=== PATIENT | male | born 1985 | race Hispanic/Latino ===

== ENCOUNTER → 2018-02-17 06:57 | Outpatient (CLI) | payer OTHER, SELFPAY ==
[2018-02-09 07:00] VITALS: BMI 29.4
--- NOTE | 2018-02-17 07:05 | CT_ITS ---
STUDY: CT CHEST WITHOUT CONTRAST REASON FOR EXAM: Male, 32 years old. Cough. History of exposure to silica. RADIATION DOSAGE (If Supplied By Facility): CTDIvol = ( 12.65 ) mGy, DLP = ( 477.45 ) mGycm TECHNIQUE: Transaxial imaging was performed without the administration of intravenous contrast material. Multiplanar coronal and sagittal images were reformatted. Individualized dose optimization techniques were used for this CT. COMPARISON: None. FINDINGS: The lungs are normal. There is no demonstrated pleural abnormality. Normal heart and pericardium. Normal mediastinum. Normal hilar regions. Normal unenhanced pulmonary arteries. Normal aorta arch and descending thoracic aorta. There are mild degenerative changes of the thoracic spine. There is no demonstrated abnormality of the visualized upper abdomen. CT/Chest without Contrast IMPRESSION: Normal unenhanced CT Chest examination. Electronically Signed: Rambo Bradley MD at 8:52 EST Tel [phone], Service support ,
--- NOTE | 2018-02-17 10:19 | PFTCOMP_ITS ---
COMPLETE PULMONARY FUNCTION TEST INTERPRETATION Brief HPI: Patient is a 32 year old male, currently under the care of myself, who presents to [facility] for complete pulmonary function tests secondary to diagnosis of silica exposure. Respiratory therapist reports good effort and reproducible results. Interpretation: Forced expiration spirometry shows no large airways obstructive ventilatory defect with an FEV1 of 103% predicted. There is no significant bronchodilator response by strict ATS criteria. Spirograms are of good quality and plateau normally. The respiratory flow volume loop shows a normal pattern. Lung volumes by body plethysmography show a normal total lung capacity at 6.83 L, 116% predicted. All other lung volumes are within normal limits. Diffusion capacity by carbon monoxide is normal at 114% predicted. The airway resistance is normal. No previous pulmonary function tests were available for review. Impression: These pulmonary function tests are within normal limits.
--- OUTSIDE RECORDS SUMMARY | 2018-04-05 00:25 | XMS RPT_ITS ---
:1985 Author Organization [facility] Care Team Providers Name Role Phone MICAH MO, MS. SUGEY Burdick Attending Unavailable PHYSICIAN, NONE Primary Care Unavailable Arya Peck Attending Unavailable Arya Peck Referring Unavailable Primay Care Physicia, No Primary Care Unavailable Arya Peck Attending Unavailable Arya Peck Referring Unavailable Arya Peck Attending Unavailable Arya Peck Attending Unavailable PROBLEMS PROBLEMS DATE TYPE CONDITION / CODE ATTENDING STATUS SOURCE 02/25/2018 Unknown Z77.29 - Contact Arya Peck with and Community (suspected) Hospital exposure to other Repository hazardous substances / Z77.29(ICD-10) 02/14/2018 Unknown R06.02 - Arya Peck Active [place] Shortness of Community breath / Hospital R06.02(ICD-10) Repository PROCEDURES PROCEDURES No Procedure Records FoundRESULTS RESULTS PULMONARY FUNCTION Observed: 02/18/2018 Status: F Source: [place] REPORT COMP 6:02 AM [facility] Pulmonary Services/Neurology [address] [place] [address] MR#: [id number] Acct: [id number] Name: RESHMA VAZQUEZ Rep #: [id number] : 1985 32 From: Arya Peck MD Referring Dr: Arya Peck MD Status: REG CLI Ordering Dr: Date: Location: CT Sex: M H COMPLETE PULMONARY FUNCTION TEST INTERPRETATION Brief HPI: Patient is a 32 year old male, currently under the care of myself, who presents to [facility] for complete pulmonary function tests secondary to diagnosis of silica exposure. Respiratory therapist reports good effort and reproducible results. Interpretation: Forced expiration spirometry shows no large airways obstructive ventilatory defect with an FEV1 of 103% predicted. There is no significant bronchodilator response by strict ATS criteria. Spirograms are of good quality and plateau normally. The respiratory flow volume loop shows a normal pattern. Lung volumes by body plethysmography show a normal total lung capacity at 6.83 L, 116% predicted. All other lung volumes are within normal limits. Diffusion capacity by carbon monoxide is normal at 114% predicted. The airway resistance is normal. No previous pulmonary function tests were available for review. Impression: These pulmonary function tests are within normal limits. 02/18/18 0602 <Electronically signed by Arya Peck MD> Date Arya Peck MD CC: No Primary Care Physician; Arya Peck MD Date Dictated: 02/17/187 Date Transcribed: 02/17/181016 Junior Media Buyer: NAY Signed CHEST WITHOUT Observed: 02/17/2018 Status: F Source: [place] CONTRAST 7:05 AM [facility] RE[facility] Imaging Services [address] [place] [address] Chest without Contrast MR#: [id number] Acct: [id number] Name: RESHMA VAZQUEZ Rep #: [id number] : 1985 M 32 From: Rambo Bradley MD PCP: Care Physician, No Primary Status: REG CLI Study: Chest without Contrast Date of Exam: 02/17/18 Exam# [id number] Ordering Dr: Arya Peck MD STUDY: CT CHEST WITHOUT CONTRAST REASON FOR EXAM: Male, 32 years old. Cough. History of exposure to silica. RADIATION DOSAGE (If Supplied By Facility): CTDIvol = ( 12.65 ) mGy, DLP = ( 477.45 ) mGycm TECHNIQUE: Transaxial imaging was performed without the administration of intravenous contrast material. Multiplanar coronal and sagittal images were reformatted. Individualized dose optimization techniques were used for this CT. COMPARISON: None. FINDINGS: The lungs are normal. There is no demonstrated pleural abnormality. Normal heart and pericardium. Normal mediastinum. Normal hilar regions. Normal unenhanced pulmonary arteries. Normal aorta arch and descending thoracic aorta. There are mild degenerative changes of the thoracic spine. There is no demonstrated abnormality of the visualized upper abdomen. CT/Chest without Contrast IMPRESSION: Normal unenhanced CT Chest examination. Electronically Signed: Rambo Bradley MD at 8:52 EST Tel [phone], Service support , CC: No Primary Care Physician; Arya Peck MD Junior Media Buyer: Signed PULMONARY VISIT REPORT Observed: 02/09/2018 Status: F Source: [place] 10:15 AM [facility] Pulmonary Medicine of [address] [place] [address] OFFICE VISIT Date of Service: 02/09/18 MR#: [id number] Acct: [id number] Name: RESHMA VAZQUEZ Rep #: [id number] : 1985 Provider: Arya Peck MD Age/Sex: 32/M Location: [facility] Status: Signed Assessment AND Plan Problems 1. Exposure to silica Z77.29 2. Shortness of breath R06.02 Plan Patient reportedly had findings with routine screening. However, patient has reported 1-2 years of progressive shortness of breath. Described pleural plaquing would be more consistent with asbestosis, but patient is unaware of any exposures. Will obtain a CT scan of the chest to look for classical eggshell calcifications. Patient will also have a complete PFT for quantification and clarification of lung function. No new medications at this time. No new precautions above current precautions would be indicated at this time. Obtain complete PFT and CT chest. Orders Orders: [facility] REFERRAL FOR PULMONARY EVALUATION: Chief Complaint: Abnormal chest x-ray Details: Patient is a 32-year-old male, who was sent by Worker[employer], who presents for evaluation secondary to abnormal chest x-ray. Patient reports that he had a chest x-ray secondary to normal surveillance from working in [employer]. 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 Patient states that he has had no acute exposure events that he can recall. In retrospect, patient reports that over the last 1-2 years he has had progressive shortness of breath. Patient states he used to play soccer frequently, but has not been able to run recently. Patient has not been on any inhalers or been seen by a project manager/team coach for these findings. Patient does report an intermittent nonproductive cough. Patient has noted some mid chest to upper abdomen burning type pain. Patient states this is 5 out of 10 and intermittent. Development typically causes pain for minutes to hours. Patient reports that he was born in the [facility]. Patient emigrated to the [place] 16[place]. Patient denies any exposure to asbestos or tuberculosis that he is aware of. Patient has been a [employer] for approximately 10 years. Documentation reviewed 19 pages of documentation were reviewed from referring physician. 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 Patient reportedly had BCG as a child, but was noted to have pleural plaques. Patient did have a spirometry that appear to show a poor seal and supratherapeutic values. Chest x-ray completed August 2017 showed a large focus of calcified pleural plaque along the left hemidiaphragm HPI Comments Details: Intake Vital Signs02/09/18 Height 5 ft 5 in 02/09/18 Weight: 80.286 kg Intake Visit Reasons: TIMO REFERRAL FOR PULMONARY EVALUATION Accompanied by: Self Allergies No Known Allergies Allergy (Unverified 02/09/18 07:01) Medications NK 02/08/18 [History Confirmed 02/09/18] ON LICENSE OF [facility] Medical History Asbestos exposure (Acute) Family History Mother Diabetes Review of Systems Const CONSTITUTIONAL: Negative anorexia, body ache, chills, daytime sleepiness, fever(s), night sweats, oral thrush, stops breathing during sleep, weight loss, sleeping in chair, fatigue, weight loss, weight gain, frequent colds, seasonal allergies, other, headache(s) or orthopnea EETM Ear Nose Throat Mouth: Positive hearing normal; negative hoarseness, dry mouth in morning, change in vision, itchy eyes, eye pain, swallowing Difficulty, ear pain, headache(s), mouth pain, nasal congestion, nasal discharge, sinus pain, sinus pressure, sore throat, other, hard of hearing, nose bleed or post nasal drip Cardio Cardiovascular: Negative chest pain, chest pain at rest, chest pain with activity, irregular heart rhythm, edema, shortness of breath when lying down, palpitations, other or murmur Resp Respiratory: Positive as per HPI, shortness of breath shortness of breath: Positive with activity and cough cough: Positive non-productive; negative pain with cough, wheezing, chest congestion, chest tightness, pain on inspiration, inhalers, increase use of rescue inhalers, snoring, apnea or other Gastro Gastrointestional: Negative bloody stools, change in appetite, difficulty swallowing, reflux, hematemesis, melena stool, loose stool, constipation or other Genitourinary: Negative blood in urine, nocturia, pain with urination or other Musc Musculoskeletal: Negative body pain, back pain, neck pain or other Skin/Breast Skin/Breast: Negative dry skin, itching, unusual bruising, breast lump, other or rash Neuro Neurological: Negative restless legs, confusion, weakness or other Psych Psychocological: Negative abnormal sleep pattern, anxiety, thoughts of hurting self/others, hopelessness or other Lymph Lymphatic: Negative easy bleeding, easy bruising, other or swollen lymph nodes Exam Const Constitutional: Positive conversant, cooperative, in no acute respiratory distress, healthy appearing, well developed, well nourished and good hygiene; negative wearing supplemental oxygen, ill appearing, appears older than stated age or smells of smoke Head Head: Positive normocephalic and atraumatic; negative cyanosis of lips/distal nose, frontal sinus tenderness or maxillary sinus tenderness Eyes Eye: Positive clear conjunctiva; negative nystagmus, scleral abnormality or cataract present Ears Ear: Positive hearing normal and external ears normal; negative hard of hearing Nose Nose: Positive external nose normal, septum normal and no nasal discharge; negative epistaxis or nasal polyp Mouth Mouth: Positive oral mucosae normal, no lesions, good dentition and posterior oropharynx is adequate; negative post nasal drip, malodorous breath or oral thrush present Mallampati Score: II: Mallampati Score Neck Neck: Positive normal visual inspection, full ROM and trachea midline; negative lymphadenopathy or JVD Chest Wall Chest: Positive normal inspection of the chest and symmetric chest movement; negative crepitus or tenderness Resp lung sounds: Positive clear to auscultation, good air exchange, normal expiratory time and normal respiratory effort; negative wheezes, rhonchi, rales, use of accessory muscles, dullness to percussion or wheeze present on forced exhalation Cardio Cardiac: Positive regular rate, regular rhythm, S1 normal and S2 normal; negative murmur, rub or gallop GI GI: Positive normal to inspection and normal bowel sounds; negative distended, ascites or epigastric tenderness Genitourinary: Positive deferred Musc Musculoskeletal: Positive steady gait; negative using an assistive device for ambulation, kyphosis or scoliosis Skin Pulmonary Skin Exam: Positive intact; negative rash, lesion, ulcers, erythema or dermal atrophy Pulses Pulse: Yes radial pulses present Extremities Extremities: Yes capillary refill normal, No clubbing, No cyanosis, No edema, No stasis dermatitis Neuro Neurologic: Yes conversant, Yes no focal neuro deficits, Yes normal concentration, Yes understands questions, Yes cooperative, Yes normal cognition, Yes normal coordination Lymph Lymphatic: No lymphadenopathy Psych Appearance: Positive grossly normal Mental Status: Positive mental status grossly normal Mood: Positive congruent mood Affect: Positive normal affect Coding Level of Care Code Off vis,new,level 4 Diagnoses Exposure to silica Z77.29 Shortness of breath R06.02 02/09/18 1015 <Electronically signed by Arya Peck MD> Date Arya Peck MD Cosigner Signature: Date (if applicable) CC: XR CHEST 1 VIEW Observed: 08/16/2017 Status: F Source: [facility] 12:16 [facility] REPOSITORY ORIGINAL Images acquired, not reported on this accession number. ALLERGIES ALLERGIES DATE TYPE / CODE NAME / CODE REACTION SEVERITY SOURCE 03/11/2018 Drug No Known Unknown [facility] Allergy/4160 Allergies/F00 [facility] 40792(SNOMED [id number](RXNOR Repository CT) M) ENCOUNTERS ENCOUNTERS ADMIT/DISCHARGE ACCOUNT NUMBER ADMITTING ENCOUNTER LOCATION SOURCE CLASS 03/11/2018 [id number] Ambulatory BMSBuilding: [place] BMS.[facility] Repository 02/17/2018 [id number] Ambulatory [facility] ding:CT Repository 02/17/2018 [id number] Ambulatory BMSBuilding: [place] [facility] Repository 02/09/2018/02/10/20 [id number] Ambulatory BMSBuilding: [place] 18 BMS.[facility] Repository 08/16/2017/08/17/19 [id number] Ambulatory [address] ding:[facility] Repository PAYERS PAYERS ENCOUNTER GUARANTOR PAYER SUBSCRIBER SOURCE 03/11/2018 RESHMA [id number] W Primary [facility]:SELF PAY [facility] [address]Wju: [facility] Number: Effective Repository () Date:2018-02-09 02/17/2018 RESHMA [id number] W Primary [facility]OB[facility] Insurance[facility]QUALITY [id number] [address]Klr: [facility] Number: Repository () [id number] Date: [place], [place] [id number]: 02/17/2018 Secondary NOT GIVENUNK [place] Insurance:SELF PAY [facility] Number: Effective Repository Date:2018-02-09 02/17/2018 RESHMA [id number] W Primary RESHMA ABADDOB: [facility], Insurance:QUALITY [id number] [address]Sfw: [facility] Number: Repository () [id number] Date: [address] [place], [place] [address]QQ: 02/17/2018 Secondary NOT GIVENUNK [place] Insurance:SELF PAY [facility] Number: Effective Repository Date:2018-02-17 02/09/2018 RESHMA [id number] Primary RESHMA ABADDOB: [place] Insurance:Quality [id number] [facility] [address]Hof: Number: Repository [id number] () Date:1746-70-45Mshz: Yanet [address] [place], [place] [address]BE: 02/09/2018 Secondary NOT GIVENUNK [place] Insurance:SELF PAY [facility] Number: Effective Repository Date:2018-02-08 08/16/2017 [facility]: Insurance:SELF [id number] [facility] [id number] [facility] Repository [address] [place] [address]Deh: Date:2017-08-13 [id number]: [phone] [id number] Name:[phone] ()Tel: [phone] ()
== END ==
PROVIDERS: Referring Provider Internal Medicine Critical Care Medicine; Visit Provider Internal Medicine Critical Care Medicine
DX: Z77.29 Contact with and (suspected) exposure to other hazardous substances (principal)
CPT/HCPCS: 71250; 94060; 94726; 94729